=== PATIENT | male | born 1960 | race Caucasian/White ===

== ENCOUNTER 2018-01-22 10:22 | Emergency (ER) | payer MEDICARE, MEDICAID ==
--- NOTE | 2018-01-22 10:35 | ER Document Report ---
ED Fall - General Stated Complaint: HEADACHE Time Seen by Provider: 01/22/18 10:27 TRAVEL OUTSIDE OF THE [place] IN LAST 30 DAYS: No - HPI Notes: Patient is a 57-year-old male that presents to the emergency department for chief complaint of fall and head injury. Patient presents by EMS from assisted living facility after having a fall today. He states he has been having pain in his right ankle which has caused him to have a difficult time walking. Today he lost his balance and fell forward hitting his head on the ground. He denies any loss of consciousness. Nursing staff recommended he be evaluated because he hit his head. He currently has no complaints other than pain in his right ankle. He states the pain has been constant for the last few weeks. He states he has seen a doctor for it and was told it was not broken. He denies any current headache, visual disturbance, nausea, numbness and weakness Past Medical History: Paranoid schizophrenia, GERD, depression, insomnia Past Surgical History: Reviewed in chart Social History: Denies drugs alcohol and tobacco Family History: Reviewed and noncontributory for presenting illness Allergies: Reviewed, see documented allergy list. REVIEW OF SYSTEMS: CONSTITUTIONAL : No fever No chills No diaphoresis No recent illness EENT: No vision changes No congestion No sore throat CARDIOVASCULAR: No chest pain No palpitations RESPIRATORY: No shortness of breath No cough No difficulty breathing GASTROINTESTINAL: No abdominal pain No nausea No vomiting No diarrhea GENITOURINARY: No dysuria No hematuria No difficulty urinating MUSCULOSKELETAL: No back pain Right ankle pain No arm pain SKIN: No rashes No lesions LYMPHATIC: No swollen, enlarged glands. NEUROLOGICAL: No lightheadedness No headache No weakness No paresthesias PSYCHIATRIC: No anxiety No depression PHYSICAL EXAMINATION: Vital signs reviewed, nursing noted reviewed. GENERAL: Well-appearing, well-nourished and in no acute distress. HEAD: Atraumatic, normocephalic. EYES: Eyes appear normal, extraocular movements intact, sclera anicteric, conjunctiva are normal. ENT: nares patent, oropharynx clear without exudates. Moist mucous membranes. NECK: Midline cervical spine tenderness, no step-offs. No paraspinal tenderness. Supple without lymphadenopathy LUNGS: Breath sounds clear to auscultation bilaterally and equal. No wheezes rales or rhonchi. HEART: Regular rate and rhythm without murmurs ABDOMEN: Soft, nontender, normoactive bowel sounds. No rebound, guarding, or rigidity. No masses appreciated. EXTREMITIES: Medial and lateral malleolar tenderness and right ankle, right ankle edema and ecchymosis, good range of motion. NEUROLOGICAL: No focal neurological deficits. Moves all extremities spontaneously Motor and sensory grossly intact on exam. PSYCH: Normal mood, normal affect. SKIN: Warm, Dry, normal turgor, no rashes or lesions noted on exposed skin - Related data Allergies/Adverse Reactions: No Known Allergies Allergy (Unverified 03/28/14 19:06) Past Medical History - Social History Smoking Status: Never Smoker Family History: Reviewed & Not Pertinent Pulmonary Medical History: Reports: Hx COPD Endocrine Medical History: Reports: Hx Diabetes Mellitus Type 2 GI Medical History: Reports: Hx Gastroesophageal Reflux Disease - Immunizations Immunizations up to date: Yes Hx Diphtheria, Pertussis, Tetanus Vaccination: Yes Review of Systems - Review of Systems Notes: Dictated Physical Exam - Vital signs Vitals: Temp Pulse Resp BP Pulse Ox 97.5 F 102 H 18 148/70 H 97 01/22/18 10:29 01/22/18 10:29 01/22/18 10:29 01/22/18 10:29 01/22/18 10:29 - Notes Notes: Dictated Course - Re-evaluation Re-evalutation: 01/22/18 10:34 Vitals reviewed. Nursing notes reviewed. Patient states he had his care at this facility however was unable to see any old ankle x-rays therefore x-ray will be obtained today because of his continued tenderness and ecchymosis. Patient had midline cervical spine tenderness on physical exam and was placed in a cervical collar. CT scan of his brain and cervical spine will be obtained. 01/22/18 11:46 CT brain and cervical spine are negative. Cervical collar removed and patient currently denying any neck pain. He will be discharged back to his assisted living facility. He was encouraged to use a walker with ambulation. He will follow with primary care for reevaluation as needed. He was counseled on closed head injury precautions. Stable at discharge. 01/22/18 12:00 Right ankle x-ray shows no acute fracture - Vital Signs Vital signs: Temp Pulse Resp BP Pulse Ox 97.5 F 102 H 18 148/70 H 97 01/22/18 10:29 01/22/18 10:29 01/22/18 10:29 01/22/18 10:29 01/22/18 10:29 Discharge - Discharge Clinical Impression: Closed head injury Qualifiers: Encounter type: initial encounter Qualified Code(s): S09.90XA - Unspecified injury of head, initial encounter Right ankle pain Qualifiers: Chronicity: acute Qualified Code(s): M25.571 - Pain in right ankle and joints of right foot Condition: Stable Disposition: HOME, SELF-CARE Instructions: Head Injury Precautions ([facility]) Additional Instructions: Please return to the emergency department if you have any worsening, or concern of your symptoms. Please return to the emergency department if you develop chest pain, difficulty breathing, severe abdominal pain, or ongoing vomiting. Please follow-up with your primary care physician in 2-3 days and any other recommended physicians. If prescribed, take all medications as directed. If you have any questions or concerns do not hesitate to return the emergency department for evaluation. [] Referrals: HALIMA ROB MD [Primary Care Provider] - Follow up in 3-5 days
--- NOTE | 2018-01-22 11:15 | RADIOLOGY REPORT (SQ) ---
EXAM DESCRIPTION: CT HEAD WITHOUT; CT CERVICAL SPINE WITHOUT COMPLETED DATE/TIME: 01/22/2018 11:01 am REASON FOR STUDY: trauma COMPARISON: None. TECHNIQUE: Axial images acquired through the brain and cervical spine without intravenous contrast. Images reviewed with brain, subdural, lung, soft tissue and bone windows. Reconstructed coronal and sagittal MPR images reviewed. Images stored on PACS. All CT scanners at this facility use dose modulation, iterative reconstruction, and/or weight based d osing when appropriate to reduce radiation dose to as low as reasonably achievable (ALARA). [facility]: Dose Right [facility]: CareDose [facility]: Dose Right [facility]: Teradose 4D [facility]: [employer] RADIATION DOSE: CT Rad equipment meets quality standard of care and radiation dose reduction techniq ues were employed. CTDIvol: 53.2 mGy. DLP: 2380 mGy-cm.; CT Rad equipment meets quality standard of c are and radiation dose reduction techniques were employed. CTDIvol: 22.7 mGy. DLP: 571 mGy-cm. mGy. LIMITATIONS: None. FINDINGS: Brain No hemorrhage or mass or shift. Normal CSF containing spaces. No fracture. No sinus fluid. Cervical spine No malalignment. Mild spondylosis. No fracture. Soft tissues normal. IMPRESSION: 1. No acute intracranial abnormality. 2. No cervical spine malalignment or fracture. TECHNICAL DOCUMENTATION: JOB ID: [id number] Quality ID # [id number]: Final reports with documentation of one or more dose reduction techniques (e.g., Au tomated exposure control, adjustment of the mA and/or kV according to patient size, use of iterative reconstruction technique) 2010 [employer]- All Rights Reserved Reading location - IP/workstation name: [email or web address]
--- NOTE | 2018-01-22 11:50 | RADIOLOGY REPORT (SQ) ---
EXAM DESCRIPTION: ANKLE RIGHT COMPLETE COMPLETED DATE/TIME: 01/22/2018 11:33 am REASON FOR STUDY: trauma COMPARISON: None. NUMBER OF VIEWS: Three views right ankle. LIMITATIONS: None. FINDINGS: Soft tissue swelling. Probable old avulsion fragments along the lateral malleolus. Morti se maintained. Talar dome intact. No acute fracture evident. No joint effusion. OTHER: No other significant finding. IMPRESSION: No acute fracture. Soft tissue swelling. TECHNICAL DOCUMENTATION: JOB ID: [id number] Reading location - IP/workstation name: [email or web address]
[2018-01-22 13:06] VITALS: BP 144/69
== END 2018-01-22 13:02 | disposition home or self-care (01) ==
LOC: ER 10:22
DX: S09.90XA Unspecified injury of head, initial encounter (principal); M25.571 Pain in right ankle and joints of right foot; W01.0XXA Fall on same level from slipping, tripping and stumbling without subsequent striking against object, initial encounter; Y92.129 Unspecified place in nursing home as the place of occurrence of the external cause; J44.9 Chronic obstructive pulmonary disease, unspecified; E11.9 Type 2 diabetes mellitus without complications
CPT/HCPCS: 70450; 72125; 99285

== ENCOUNTER 2018-05-02 16:25 | Emergency (ER) | payer MEDICARE, MEDICAID ==
[2018-05-02] MEDS ORDERED: BACITRACIN OPH OINT 3.5 GM TP ONE (20:17)
--- NOTE | 2018-05-02 20:18 | ER Document Report ---
ED General - General Chief Complaint: Laceration Stated Complaint: FALL/HEAD PAIN Time Seen by Provider: 05/02/18 20:07 Primary Care Provider: HALIMA ROB MD [Primary Care Provider] - Follow up as needed Notes: Patient is a 57-year-old male with schizophrenia that presents to the emergency department for chief complaint of head injury. Patient reports that around 1 or 2:00 this afternoon, he was walking in the hallway that was recently mopped, he slipped and fell backwards and hit his head on the floor. He denies loss of consciousness. Denies any numbness, weakness or tingling in any of his extremities. He states he briefly had blurred vision, but has since resolved and his vision is back to normal. He had some bleeding from the injury. He denies having a headache at this time. Denies any other complaints. He also denies having any neck pain. Past Medical History: Schizophrenia, diabetes mellitus, hypertension Past Surgical History: Denies surgical history Social History: Admits to smoking cigarettes, denies alcohol or drug use, lives at a prison. Family History: Reviewed and noncontributory for presenting illness Allergies: Reviewed, see documented allergy list. REVIEW OF SYSTEMS: Other than noted above, the 12 point review of systems was reviewed with the patient and were negative, all pertinent findings are included in the HPI. PHYSICAL EXAMINATION: Vital signs reviewed, nursing noted reviewed. GENERAL: Well-appearing, well-nourished and in no acute distress. HEAD: Patient noted to have scalp hematoma, with abrasion to the posterior and superior aspect of the scalp, no deep laceration appreciated, no active bleeding at this time. EYES: Eyes appear normal, extraocular movements intact, sclera anicteric, conjunctiva are normal. ENT: nares patent, oropharynx clear without exudates. Moist mucous membranes. NECK: Normal range of motion, supple without lymphadenopathy, no midline tenderness, mild paraspinal tenderness, no midline pain with range of motion. LUNGS: Breath sounds clear to auscultation bilaterally and equal. No wheezes rales or rhonchi. HEART: Regular rate and rhythm without murmurs EXTREMITIES: Nontender, good range of motion, no pitting or edema. NEUROLOGICAL: No focal neurological deficits. Moves all extremities spontaneously Motor and sensory grossly intact on exam. PSYCH: Normal mood, normal affect. With some pressured speech. SKIN: Warm, Dry, normal turgor, no rashes or lesions noted on exposed skin TRAVEL OUTSIDE OF THE [place] IN LAST 30 DAYS: No - Related Data Allergies/Adverse Reactions: No Known Allergies Allergy (Unverified 03/28/14 19:06) Past Medical History - Social History Smoking Status: Current Every Day Smoker Chew tobacco use (# tins/day): No Frequency of alcohol use: None Drug Abuse: None Family History: Reviewed & Not Pertinent Patient has suicidal ideation: No Patient has homicidal ideation: No Pulmonary Medical History: Reports: Hx COPD Endocrine Medical History: Reports: Hx Diabetes Mellitus Type 2 Renal/ Medical History: Denies: Hx Peritoneal Dialysis GI Medical History: Reports: Hx Gastroesophageal Reflux Disease - Immunizations Immunizations up to date: Yes Hx Diphtheria, Pertussis, Tetanus Vaccination: Yes Physical Exam - Vital signs Vitals: Temp Pulse Resp BP Pulse Ox 98.4 F 94 18 127/97 H 100 05/02/18 16:51 05/02/18 16:51 05/02/18 16:51 05/02/18 16:51 05/02/18 16:51 Course - Re-evaluation Re-evalutation: Patient seen and examined vital signs reviewed. Patient was treated with bacitracin ointment to the scalp wound, no deep wound to be repaired with either sutures or jose. CT of the head obtained and negative for acute intracranial injury, patient not on blood thinners, patient's neck was cleared by Nexus criteria. Results were reviewed when available and demonstrated negative CT imaging of the head The patient was re-evaluated and was stable, updated on tetanus vaccination. Evaluation was most consistent with closed head injury, scalp hematoma and abrasion Results were discussed with the patient at this point, after careful consideration I feel that that patient can be discharged from the emergency department, the patient was educated treatments and reasons to return to the emergency department based on their presumed diagnosis as noted above, they were advised to followup with a primary care physician in 2-3 days. Patient was agree able to plan of care. *Note is created using voice recognition software and may contain spelling, syntax or grammatical errors. Head CT 05/02/18 20:16 IMPRESSION: Negative for acute intracranial abnormality. Small frontal scalp hematoma. Mucosal thickening ethmoid air cells. TECHNICAL DOCUMENTATION: Quality ID # 436: Final reports with documentation of one or more dose reduction techniques (e.g., Automated exposure control, adjustment of the mA and/or kV according to patient size, use of iterative reconstruction technique) copyright 2011 [employer]- All Rights Reserved - Vital Signs Vital signs: Temp Pulse Resp BP Pulse Ox 98.4 F 94 18 127/97 H 100 05/02/18 16:51 05/02/18 16:51 05/02/18 16:51 05/02/18 16:51 05/02/18 16:51 Discharge - Discharge Clinical Impression: Scalp hematoma Qualifiers: Encounter type: initial encounter Qualified Code(s): S00.03XA - Contusion of scalp, initial encounter Closed head injury Qualifiers: Encounter type: initial encounter Qualified Code(s): S09.90XA - Unspecified injury of head, initial encounter Scalp abrasion Qualifiers: Encounter type: initial encounter Qualified Code(s): S00.01XA - Abrasion of scalp, initial encounter Condition: Stable Disposition: HOME, SELF-CARE Additional Instructions: Please apply bacitracin ointment twice daily to the scalp wound, monitor for signs of infection, and have him follow-up with the primary care. Referrals: HALIMA ROB MD [Primary Care Provider] - Follow up as needed
--- NOTE | 2018-05-02 20:45 | RADIOLOGY REPORT (SQ) ---
EXAM DESCRIPTION: CT HEAD WITHOUT IV CONTRAST COMPLETED DATE/TME: 05/02/2018 20:16 CLINICAL HISTORY: 57 years, Male, head injury COMPARISON: 01/22/2018 CT brain TECHNIQUE: 203 Images stored on PACS. All CT scanners at this facility use dose modulation, iterative reconstruction, and/or weight based dosing when appropriate to reduce radiation dose to as low as reasonably achievable (ALARA). [facility]: Dose Right [facility]: CareDose [facility]: Dose Right [facility]: Teradose 4D [facility]: [employer] LIMITATIONS: None. FINDINGS: The globes are intact. Mucosal thickening of the ethmoid air cells. Mild motion artifact. No displaced or depressed skull fracture. No intra or extra-axial hemorrhage. CT is limited for evaluation of acute infarct. No CT evidence for large or territorial acute infarct. No mass or midline shift. Small frontal scalp hematoma is suggested. IMPRESSION: Negative for acute intracranial abnormality. Small frontal scalp hematoma. Mucosal thickening ethmoid air cells. TECHNICAL DOCUMENTATION: Quality ID # 436: Final reports with documentation of one or more dose reduction techniques (e.g., Automated exposure control, adjustment of the mA and/or kV according to patient size, use of iterative reconstruction technique) copyright 2010 [employer]- All Rights Reserved
[2018-05-02] MEDS ORDERED: DIPH/PERTUSS(ACELL)/TETANUS VAC/PF 0.5 ML SYR (>=10YO) IM ONE (20:49)
[2018-05-03 03:32] VITALS: BP 125/78
== END 2018-05-02 21:35 | disposition home or self-care (01) ==
LOC: ER 16:25
DX: S00.03XA Contusion of scalp, initial encounter (principal); W01.0XXA Fall on same level from slipping, tripping and stumbling without subsequent striking against object, initial encounter; Y92.198 Other place in other specified residential institution as the place of occurrence of the external cause; I10 Essential (primary) hypertension; E11.9 Type 2 diabetes mellitus without complications; F17.210 Nicotine dependence, cigarettes, uncomplicated
CPT/HCPCS: 99283; 70450; 90715; A9270; J3490